=== PATIENT | male | born 1955 | race Caucasian/White ===

== ENCOUNTER → 2024-11-12 06:42 | Outpatient (REF) | payer OTHER, SELFPAY | LOC: RCS 06:42 | PROVIDERS: ATTENDING PHYSICIAN Physical Medicine & Rehabilitation; FAMILY PHYSICIAN Student in an Organized Health Care Education/Training Program | DX: Z01.818 Encounter for other preprocedural examination (principal) | CPT/HCPCS: 93005 ==

== ENCOUNTER 2025-03-31 15:27 | Emergency (ER) | payer OTHER, SELFPAY ==
[2025-03-31 15:33] VITALS: BP 160/87
[2025-03-31 17:32] VITALS: BP 136/81; BMI 27.4
--- NOTE | 2025-03-31 18:13 | ED.GENMED ---
History of Present Illness
General
Chief Complaint: Extremity Pain (non-traumatic)
Time Seen by Provider: 03/31/25 16:53
History of Present Illness
History of Present Illness:
69-year-old male presents to the emergency department for evaluation of intermittent right popliteal/proximal calf pain. Pain seems to wax and wane but occasionally will 'grab him' close severe pain. No leg swelling or difficulty walking. No
recent injuries. No fevers or chills.
Past History
Past History
ED Past Medical History: Cancer (Skin cancer) and Other (Diverticulitis)
ED Past Surgical History: Orthopedic (Right shoulder surgery, Right leg surgery, Left knee surgery, )
Social History
Tobacco: Non-smoker
Alcohol: Occasional
Drug: None
Personal:
Living: with family
Review of Systems
Review of Systems
Allergies reviewed?: Yes
All Other Systems: ROS reviewed and negative except as documented in HPI and ROS
Phy Exam
Physical Exam
Physical Exam:
GEN: Well appearing, NAD, WDWN
HEENT: Oral mucosa moist, no scleral icterus
Cardiac: Regular rate
Lung: No respiratory distress, no tachypnea
MSK: No gross deformity or injuries. No reproducible tenderness to the right knee. Right knee range of motion is normal with no joint effusion or crepitus
Skin: Good color, no pallor or jaundice, no rashes
Neuro: AO x3, moves all extremities freely
Psych: Calm, cooperative
Course
Orders/Labs/Results
Orders:
Orders
03/31/25 15:34
Periph Venous Lwr Ext Rt US [US Periph Venous LOWER Ext RT] Urgent
Comment:
Reason For Exam: post. knee pain
Vital Signs
Initial and Last Documented VS:
Initial Vital Signs
Temp Pulse Resp BP Pulse Ox
98.5 F 78 18 160/87 98
03/31/25 15:33 03/31/25 15:33 03/31/25 15:33 03/31/25 15:33 03/31/25 15:33
Last Documented Vital Signs
Temp Pulse Resp BP Pulse Ox
98.6 F 82 20 136/81 99
03/31/25 17:32 03/31/25 17:32 03/31/25 17:32 03/31/25 17:32 03/31/25 18:14
MDM/Problems Addressed
MDM/Problems Addressed:
Ultrasound reveals no evidence of DVT, popliteal cyst identified, discussed supportive care and recommend Ortho follow-up if worsening
*Pulse Oximetry
SaO2: 99
Oxygen Mode of Delivery: Room air
Patient hypoxic: no
*Critical Care Note
Total Time (30-74mins, 75-104mins- exclusive of procedures): Not Applicable
ED Attending Note
-
Portions of this chart may have been created with voice recognition software.� Occasional wrong word or��sound alike� substitutions may have occurred due to the inherent limitations of voice recognition software.
Discharge Plan
Departure
Patient Disposition: Home (Routine Discharge)
Date of Disposition: 03/31/25
Time of Disposition: 18:13
Patient with high blood pressure during this ER visit?: No
Discharge Problem:
Garcia's cyst
Instructions: Garcia's Cyst (DC)
Prescriptions:
No Action
No Current Medications
0
Referrals:
Gary More DO [Family Provider, Family Practice]
Interventions
Interventions:
*Risk Screen - Suicide Last Done: 03/31/25 15:33
*General Assessment Last Done: 03/31/25 15:33
*Neglect/Abuse Screening Last Done: 03/31/25 15:33
*ED- Fall Risk Assessment Last Done: 03/31/25 15:33
*ED COVID-19 Vaccine History Last Done: 03/31/25 15:33
*Nursing Disposition Last Done: 03/31/25 18:19
ED-Skin Assessment Last Done: 03/31/25 17:32
ED-Peripheral Vascular Assessment Last Done: 03/31/25 17:32
ED-Musculoskeletal Assessment Last Done: 03/31/25 17:32
Discharge Date and Time
Discharge Date/Time: 03/31/25 18:20
Print Language: [email or web address]
== END 2025-03-31 18:20 | disposition home or self-care (01) ==
LOC: EMR 15:27
PROVIDERS: EMERGENCY PHYSICIAN Emergency Medicine; FAMILY PHYSICIAN Student in an Organized Health Care Education/Training Program
DX: M71.20 Synovial cyst of popliteal space [Baker], unspecified knee (principal); M79.661 Pain in right lower leg; Z85.828 Personal history of other malignant neoplasm of skin
CPT/HCPCS: 99284; 93971